=== PATIENT | male | born 1995 | race African-American/Black ===

== ENCOUNTER 2019-01-31 06:49 | Emergency (ER) | payer SELFPAY ==
[~2019-01-31] VITALS: Ht 172.7 cm; Wt 70.0 kg
[~2019-01-31 06:49] MED LIST: ADVAIR DISK1 IN; ALBUTEROL2.5 MG/3 M IN; AMOXICILLIN/PO500 MG PO; AMOXIL400 MG/5 M OR; CIPROFLOXACN500 MG PO; FLOXIN OTIC0.3 % OT; NAPROSYN500 MG PO; NO HOME MEDS; ONDANSETRON4 MG PO; PREDNISO30ODT OR; VENTOLIN HFA IN; ZITHROMAX250 MG PO
[2019-01-31] MEDS ORDERED: ALLEGRA-D 2424 HOUR PO (07:25)
[2019-01-31 07:28] VITALS: BP 137/77
== END 2019-01-31 07:30 | disposition home or self-care (01) | DRG 156 ==
LOC: ED 06:49
DX: H92.03 Otalgia, bilateral (principal); H69.93 Unspecified Eustachian tube disorder, bilateral; R09.81 Nasal congestion; F17.210 Nicotine dependence, cigarettes, uncomplicated

== ENCOUNTER 2019-02-15 12:56 | Emergency (ER) | payer SELFPAY ==
[~2019-02-15] VITALS: Ht 172.7 cm; Wt 80.0 kg
[~2019-02-15 12:56] MED LIST changes: +ALLEGRA-D 2424 HOUR PO
[2019-02-15] MEDS ORDERED: ZPAK PO (13:19)
[2019-02-15 13:29] VITALS: BP 133/83
== END 2019-02-15 13:29 | disposition home or self-care (01) | DRG 153 ==
LOC: ED 12:56
DX: J06.9 Acute upper respiratory infection, unspecified (principal); F17.200 Nicotine dependence, unspecified, uncomplicated